=== PATIENT | female | born 2000 | race Caucasian/White ===

== ENCOUNTER 2021-03-24 12:10 | Emergency (ER) | payer OTHER, MEDICAID ==
[~2021-03-24] VITALS: Ht 162.6 cm; Wt 104.3 kg
[~2021-03-24 12:10] MED LIST: BENADRYL25 MG PO; HYDROXYZINE HCL25 M1 PO; IBUPROFEN 600600 M1 PO; NOHOMEMEDICATIONS; PREDNISONE 20 M20 MG PO; TRIAMCINOLONE A80 G2 TOP; ZYRTEC10 M5 PO
[2021-03-24 12:57] LABS: URINE BILIRUBIN NEGATIVE (Negative); URINE BLOOD 3+ (Negative); URINE CLARITY TURBID; URINE COLOR RED; URINE GLUCOSE-RANDOM NEGATIVE (Negative); URINE KETONES NEGATIVE (Negative); URINE LEUKOCYTES-REFLEX NEGATIVE (Negative); URINE NITRITE-REFLEX NEGATIVE (Negative); URINE PROTEIN 3+ (Negative); URINE SPECIFIC GRAVITY >= 1.030 (1.005-1.030); URINE UROBILINOGEN 0.2 E.U./dl (0.2-1.0)
[2021-03-24 13:10] LABS: BACTERIA-REFLEX 1-9 Few /HPF (None Seen); CASTS None Seen /LPF (None Seen); CRYSTALS None Seen /LPF (None Seen); MUCUS 0-3 Light strn/LPF (None Seen); SQUAMOUS 0-3 Few /LPF (0-3); URINE RBC >20 Many /HPF (0-2); URINE WBC-REFLEX 0-5 Rare /HPF (0-5)
[2021-03-24 13:23] LABS: ABSOLUTE BASOPHILS 0.1 thou/uL (0.0-0.2); ABSOLUTE EOSINOPHILS 0.7 thou/uL (0.0-0.7); ABSOLUTE LYMPHOCYTES 2.9 thou/uL (0.8-5.3); ABSOLUTE MONOCYTES 0.6 thou/uL (0.0-1.2); BASOPHILS 0.8 %; EOSINOPHILS 7.7 %; HEMATOCRIT 39.8 % (37.0-47.0); HEMOGLOBIN 13.6 gm/dL (12.0-15.0); LYMPHOCYTES 31.1 %; MCH 27.9 pg (26.0-34.0); MCHC 34.1 g/dL (28.0-37.0); MCV 81.8 fL (80.0-100.0); MONOCYTES 6.8 %; MPV 7.7 fl. (7.2-11.1); NUCLEATED RBCS 0 /100WBC; PLATELET COUNT* 319 thou/uL (150-400); POLYS 53.6 %; RBC 4.87 mil/uL (4.20-5.00); RDW-CV 12.8 % (10.5-14.5); WBC 9.4 thou/uL (4.0-11.0)
[2021-03-24 13:34] LABS: CALCIUM 8.2 mg/dL (8.5-10.1); CREATININE 0.7 mg/dL (0.6-1.3); POTASSIUM 3.5 mmol/L (3.5-5.1)
[2021-03-24 13:37] LABS: APTT 25.9 Seconds (25.0-31.3); PROTIME 10.2 Seconds (9.20-11.50)
[2021-03-24 13:38] LABS: TOTAL BILIRUBIN 0.3 mg/dL (<0.1-1.0); TOTAL PROTEIN 7.7 g/dL (6.4-8.2)
[2021-03-24] MEDS ORDERED: MEDROXYPROGESTE10 MG PO ×2 (15:30→15:51)
[2021-03-24] MEDS ORDERED: NAPROSYN500 MG PO ×2 (15:30→15:51)
[2021-03-24] MEDS ORDERED: NORCO5 PO ×2 (15:30→15:55)
[2021-03-24 16:15] VITALS: BP 125/75
== END 2021-03-24 16:15 | disposition home or self-care (01) ==
LOC: M.ERS 12:10
PROVIDERS: Physician Assistant
DX: D25.9 Leiomyoma of uterus, unspecified (principal); Z88.1 Allergy status to other antibiotic agents; Z88.0 Allergy status to penicillin; Z79.899 Other long term (current) drug therapy